=== PATIENT | female | born 1985 | race Caucasian/White ===

== ENCOUNTER 2018-12-26 13:03 | Emergency (ER) | payer MEDICAID ==
[2018-12-26] MEDS: LIDOCAINE 2% VISC 15 ML CUP PO (15:29)
== END 2018-12-26 16:59 | disposition home or self-care (01) ==
LOC: FTE 13:03
DX: O99.89 Other specified diseases and conditions complicating pregnancy, childbirth and the puerperium (principal); H60.312 Diffuse otitis externa, left ear; Z3A.14 14 weeks gestation of pregnancy
CPT/HCPCS: 99283; Z7502

== ENCOUNTER 2019-01-16 02:38 | Emergency (ER) | payer MEDICAID ==
[2019-01-16] MEDS: HYDROCODONE/APAP (5/325) TAB PO (03:27)
== END 2019-01-16 04:31 | disposition home or self-care (01) ==
LOC: FTE 02:38
DX: H66.92 Otitis media, unspecified, left ear (principal)
CPT/HCPCS: 99283; Z7502

== ENCOUNTER 2019-01-31 11:56 | Emergency (ER) | payer MEDICAID | END 2019-01-31 14:14 | disposition home or self-care (01) | LOC: FTE 14:14 | DX: O99.89 Other specified diseases and conditions complicating pregnancy, childbirth and the puerperium (principal); H92.01 Otalgia, right ear; Z3A.00 Weeks of gestation of pregnancy not specified | CPT/HCPCS: 99283; Z7502 ==

== ENCOUNTER 2019-04-24 13:55 | Emergency (ER) | payer MEDICAID ==
[2019-04-24 14:25] LABS: ADD MAN DIFF? NO
[2019-04-24] MEDS: LORAZEPAM 0.5 MG TAB PO (14:27)
[2019-04-24] MEDS: SOD CHLORIDE 0.9% 1,000 ML IV (14:28)
[2019-04-24] MEDS: LABETALOL 100 MG TAB PO (14:28)
[2019-04-24 14:30] LABS: WHITE BLOOD COUNT 10.5 10^3/ul (4.8-10.8)
[2019-04-24 14:30] LABS: BASOPHIL # 0.1 10^3/ul (0.0-0.1); BASOPHILS % 0.9 % (0.0-2.0); EOSINOPHILS # 0.2 10^3/ul (0.0-0.5); EOSINOPHILS % 1.4 % (0.0-7.0); HEMOGLOBIN 12.6 g/dl (12.0-16.0); LYMPHOCYTES # 1.9 10^3/ul (0.8-2.9); LYMPHOCYTES % 17.8 % (15.0-51.0); MEAN CORPUSCULAR HEMOGLOBIN 30.9 pg (29.0-33.0); MEAN CORPUSCULAR VOLUME 88.2 fl (82.0-101.0); MEAN PLATELET VOLUME 9.6 fl (7.4-10.4); MONOCYTE # 0.9 10^3/ul (0.3-0.9); MONOCYTES % 8.2 % (0.0-11.0); NEUTROPHIL # 7.1 10^3/ul (1.6-7.5); NEUTROPHILS % 67.5 % (39.0-77.0); PLATELET COUNT 244 10^3/UL (140-415); RED BLOOD COUNT 4.08 10^6/ul (4.20-5.40)
[2019-04-24 14:37] LABS: ADD UMIC NO; UR ASCORBIC ACID NEGATIVE (NEGATIVE); UR BILIRUBIN (Dip) NEGATIVE (NEGATIVE); UR BLOOD (Dip) NEGATIVE (NEGATIVE); UR CLARITY CLEAR (CLEAR); UR COLOR STRAW (YELLOW); UR GLUCOSE (Dip) NEGATIVE (NEGATIVE); UR KETONES (Dip) TRACE mg/dL (NEGATIVE); UR LEUKOCYTE ESTERASE (Dip) NEGATIVE Leu/ul (NEGATIVE); UR NITRITE (Dip) NEGATIVE (NEGATIVE); UR SPECIFIC GRAVITY (Dip) 1.004 (1.003-1.030); UR TOTAL PROTEIN (Dip) NEGATIVE (NEGATIVE); UR UROBILINOGEN (Dip) NEGATIVE (NEGATIVE)
[2019-04-24 14:53] LABS: ALANINE AMINOTRANSFERASE 17 IU/L (13-69); ALBUMIN/GLOBULIN RATIO 1.17; ALKALINE PHOSPHATASE 80 IU/L (42-121); ANION GAP 11 (5-13); ASPARTATE AMINO TRANSFERASE 19 IU/L (15-46); BILIRUBIN,INDIRECT 0.7 mg/dl (0-1.1); BILIRUBIN,TOTAL 0.7 mg/dl (0.2-1.3); BLOOD UREA NITROGEN 6 mg/dl (7-20); CALCIUM 9.6 mg/dl (8.4-10.2); CARBON DIOXIDE 22 mmol/L (21-31); CHLORIDE 105 mmol/L (97-110); CREATININE 0.48 mg/dl (0.44-1.00); Estimated GFR > 60 mL/min (>60); GLUCOSE 100 mg/dl (70-220); LIPASE 167 U/L (23-300); POTASSIUM 3.7 mmol/L (3.5-5.1); SODIUM 138 mmol/L (135-144); TOTAL PROTEIN 7.4 g/dl (6.1-8.1)
[2019-04-24 15:04] LABS: TROPONIN-I 0.039 ng/ml (0.000-0.120)
[2019-04-24] MEDS: DILTIAZEM 25 MG INJ IV (15:57)
== END 2019-04-24 17:56 | disposition home or self-care (01) ==
LOC: E/R 13:55
DX: O99.413 Diseases of the circulatory system complicating pregnancy, third trimester (principal); I47.1 Supraventricular tachycardia; Z3A.31 31 weeks gestation of pregnancy
CPT/HCPCS: 36415; 80053; 81003; 83690; 84484; 85025; 93005; 96374; 99284-25

== ENCOUNTER 2019-04-24 17:56 | Inpatient (IN) | payer MEDICAID ==
[2019-04-24 22:21] LABS: FREE THYROXINE INDEX (Calc) 2.58 ug/ml (0.65-3.89); T4 (THYROXINE) 13.6 ug/dl (5.5-11.0)
[2019-04-24] MEDS ORDERED: NACL 0.9% 3 ML SYG IV (23:30)
[2019-04-25 07:17] LABS: ADD MAN DIFF? NO
[2019-04-25 07:19] LABS: WHITE BLOOD COUNT 11.6 10^3/ul (4.8-10.8)
[2019-04-25 07:19] LABS: BASOPHIL # 0.1 10^3/ul (0.0-0.1); BASOPHILS % 0.8 % (0.0-2.0); EOSINOPHILS # 0.2 10^3/ul (0.0-0.5); EOSINOPHILS % 1.5 % (0.0-7.0); HEMATOCRIT 30.6 % (37.0-47.0); HEMOGLOBIN 10.6 g/dl (12.0-16.0); LYMPHOCYTES # 2.1 10^3/ul (0.8-2.9); LYMPHOCYTES % 17.7 % (15.0-51.0); MEAN CORPUSCULAR HEMOGLOBIN 30.8 pg (29.0-33.0); MEAN CORPUSCULAR HGB CONC 34.6 g/dl (32.0-37.0); MEAN PLATELET VOLUME 9.8 fl (7.4-10.4); MONOCYTE # 0.9 10^3/ul (0.3-0.9); MONOCYTES % 7.5 % (0.0-11.0); NEUTROPHILS % 69.3 % (39.0-77.0); PLATELET COUNT 219 10^3/UL (140-415); RED BLOOD COUNT 3.44 10^6/ul (4.20-5.40); RED CELL DISTRIBUTION WIDTH 13.2 % (11.5-14.5)
[2019-04-25 07:45] LABS: ALANINE AMINOTRANSFERASE 16 IU/L (13-69); ALBUMIN 3.3 g/dl (3.3-4.9); ALBUMIN/GLOBULIN RATIO 1.03; ALKALINE PHOSPHATASE 68 IU/L (42-121); ANION GAP 8 (5-13); ASPARTATE AMINO TRANSFERASE 22 IU/L (15-46); BLOOD UREA NITROGEN 4 mg/dl (7-20); CALCIUM 8.4 mg/dl (8.4-10.2); CARBON DIOXIDE 21 mmol/L (21-31); CHLORIDE 109 mmol/L (97-110); CREATININE 0.35 mg/dl (0.44-1.00); Estimated GFR > 60 mL/min (>60); GLUCOSE 88 mg/dl (70-220); MAGNESIUM 1.7 mg/dl (1.7-2.5); POTASSIUM 3.7 mmol/L (3.5-5.1); SODIUM 138 mmol/L (135-144); TOTAL PROTEIN 6.5 g/dl (6.1-8.1)
[2019-04-25] MEDS ORDERED: ACETAMINOPHEN 325 MG TAB PO (09:30)
[2019-04-25] MEDS: SOD CHLORIDE 0.9% 250 ML IV (10:26)
[2019-04-25] MEDS: PRENATAL VITAMIN PO (10:26)
[2019-04-25 11:20] LABS: CREATINE KINASE 56 IU/L (23-200)
[2019-04-25 11:28] LABS: CK INDEX 4.1; CK-MB 2.28 ng/ml (0.0-2.4)
[2019-04-25 11:32] LABS: TROPONIN-I 0.194 ng/ml (0.000-0.120)
[2019-04-25 13:33] LABS: ADD UMIC NO; UR ASCORBIC ACID NEGATIVE (NEGATIVE); UR BILIRUBIN (Dip) NEGATIVE (NEGATIVE); UR BLOOD (Dip) NEGATIVE (NEGATIVE); UR CLARITY CLEAR (CLEAR); UR COLOR YELLOW (YELLOW); UR GLUCOSE (Dip) NEGATIVE (NEGATIVE); UR KETONES (Dip) NEGATIVE (NEGATIVE); UR LEUKOCYTE ESTERASE (Dip) NEGATIVE Leu/ul (NEGATIVE); UR NITRITE (Dip) NEGATIVE (NEGATIVE); UR SPECIFIC GRAVITY (Dip) 1.005 (1.003-1.030); UR TOTAL PROTEIN (Dip) NEGATIVE (NEGATIVE); UR UROBILINOGEN (Dip) NEGATIVE (NEGATIVE)
[2019-04-25] MEDS: FERROUS GLUCONATE (EC) 325 MG TAB PO (14:56)
[2019-04-25 16:24] LABS: CREATINE KINASE 55 IU/L (23-200)
[2019-04-25 16:33] LABS: CK INDEX 3.1; CK-MB 1.71 ng/ml (0.0-2.4)
[2019-04-25 16:37] LABS: TROPONIN-I 0.101 ng/ml (0.000-0.120)
[2019-04-25 16:51] LABS: INR 1.04; PROTIME 13.7 Sec (11.9-14.9); PT RATIO 1.1
[2019-04-25] MEDS ORDERED: LACTATED RINGER'S 1,000 ML IV (22:38)
[2019-04-26 06:50] LABS: ADD MAN DIFF? NO
[2019-04-26 06:56] LABS: BASOPHIL # 0.1 10^3/ul (0.0-0.1); BASOPHILS % 0.8 % (0.0-2.0); EOSINOPHILS # 0.2 10^3/ul (0.0-0.5); EOSINOPHILS % 2.3 % (0.0-7.0); LYMPHOCYTES # 2.1 10^3/ul (0.8-2.9); LYMPHOCYTES % 21.9 % (15.0-51.0); MEAN CORPUSCULAR HEMOGLOBIN 30.1 pg (29.0-33.0); MEAN CORPUSCULAR HGB CONC 34.4 g/dl (32.0-37.0); MEAN CORPUSCULAR VOLUME 87.4 fl (82.0-101.0); MEAN PLATELET VOLUME 9.7 fl (7.4-10.4); MONOCYTE # 0.8 10^3/ul (0.3-0.9); MONOCYTES % 8.4 % (0.0-11.0); NEUTROPHILS % 61.9 % (39.0-77.0); PLATELET COUNT 226 10^3/UL (140-415); RED BLOOD COUNT 3.66 10^6/ul (4.20-5.40); RED CELL DISTRIBUTION WIDTH 13.1 % (11.5-14.5)
[2019-04-26 06:56] LABS: WHITE BLOOD COUNT 9.6 10^3/ul (4.8-10.8)
[2019-04-26 07:19] LABS: ALANINE AMINOTRANSFERASE 13 IU/L (13-69); ALBUMIN 3.3 g/dl (3.3-4.9); ALKALINE PHOSPHATASE 63 IU/L (42-121); ANION GAP 10 (5-13); ASPARTATE AMINO TRANSFERASE 18 IU/L (15-46); BILIRUBIN,INDIRECT 0.8 mg/dl (0-1.1); BILIRUBIN,TOTAL 0.8 mg/dl (0.2-1.3); BLOOD UREA NITROGEN 4 mg/dl (7-20); CALCIUM 8.5 mg/dl (8.4-10.2); CARBON DIOXIDE 20 mmol/L (21-31); CHLORIDE 109 mmol/L (97-110); CREATININE 0.39 mg/dl (0.44-1.00); Estimated GFR > 60 mL/min (>60); GLUCOSE 93 mg/dl (70-220); POTASSIUM 3.7 mmol/L (3.5-5.1); SODIUM 139 mmol/L (135-144); TOTAL PROTEIN 6.3 g/dl (6.1-8.1)
[2019-04-26 07:22] LABS: MAGNESIUM 1.7 mg/dl (1.7-2.5)
[2019-04-26 07:30] LABS: TROPONIN-I 0.121 ng/ml (0.000-0.120)
[2019-04-26] MEDS: PRENATAL VITAMIN PO (09:11)
[2019-04-26] MEDS: FERROUS GLUCONATE (EC) 325 MG TAB PO (09:11)
[2019-04-26 23:34] LABS: HEMOGLOBIN A1C 4.7 % (0-5.9)
[2019-04-27] MEDS ORDERED: GLUCOSE GEL 15 GRAM TUBE BUCCAL (00:30)
[2019-04-27] MEDS ORDERED: GLUCAGON 1 MG INJ IM (00:30)
[2019-04-27] MEDS ORDERED: DEXTROSE 50% 50 ML SYRINGE IV ×2 (00:30)
[2019-04-27] MEDS ORDERED: GLUCOSE GEL 15 GRAM TUBE PO ×2 (00:30)
[2019-04-27] MEDS: BETAMET NA PHOS/AC(6 MG/ML) 2 ML INJ SYG IM (01:55)
[2019-04-27] MEDS: ACCU-CHEK XX ×4 (06:00→20:08)
[2019-04-27] MEDS: INSULIN ASPART [NOVOLOG] 3 ML PEN SC ×3 (08:17→20:00)
[2019-04-27] MEDS: PRENATAL VITAMIN PO (08:35)
[2019-04-27] MEDS: ASPIRIN (EC) 81 MG TAB PO ×3 (08:36→18:25)
[2019-04-27] MEDS: FERROUS GLUCONATE (EC) 325 MG TAB PO (08:36)
[2019-04-27 09:08] LABS: TROPONIN-I 0.056 ng/ml (0.000-0.120)
[2019-04-28] MEDS: BETAMET NA PHOS/AC(6 MG/ML) 2 ML INJ SYG IM (00:13)
[2019-04-28] MEDS: ACCU-CHEK XX ×4 (05:43→19:55)
[2019-04-28 07:06] LABS: TROPONIN-I 0.029 ng/ml (0.000-0.120)
[2019-04-28] MEDS: ASPIRIN (EC) 81 MG TAB PO (08:16)
[2019-04-28] MEDS: PRENATAL VITAMIN PO (08:16)
[2019-04-28] MEDS: FERROUS GLUCONATE (EC) 325 MG TAB PO (08:17)
[2019-04-28] MEDS: INSULIN ASPART [NOVOLOG] 3 ML PEN SC ×3 (10:20→21:16)
[2019-04-29] MEDS: ACCU-CHEK XX ×4 (06:00→19:55)
[2019-04-29 07:22] LABS: TROPONIN-I 0.018 ng/ml (0.000-0.120)
[2019-04-29] MEDS: FERROUS GLUCONATE (EC) 325 MG TAB PO (08:10)
[2019-04-29] MEDS: ASPIRIN (EC) 81 MG TAB PO (08:10)
[2019-04-29] MEDS: PRENATAL VITAMIN PO (08:10)
[2019-04-29] MEDS: INSULIN ASPART [NOVOLOG] 3 ML PEN SC ×3 (09:55→19:55)
[2019-04-29] MEDS: DOCUSATE SODIUM 100 MG CAP PO (10:16)
[2019-04-30] MEDS: ACCU-CHEK XX ×2 (05:57→10:15)
[2019-04-30] MEDS: ASPIRIN (EC) 81 MG TAB PO (08:11)
[2019-04-30] MEDS: PRENATAL VITAMIN PO (08:11)
[2019-04-30] MEDS: FERROUS GLUCONATE (EC) 325 MG TAB PO (08:11)
[2019-04-30] MEDS: INSULIN ASPART [NOVOLOG] 3 ML PEN SC (09:55)
== END 2019-04-30 12:00 | disposition home or self-care (01) | DRG 831 ==
LOC: OBT 17:56 → L-D 17:59 → TEL 23:55 → L-D 18:14
PROVIDERS: Internal Medicine
DX: O99.413 Diseases of the circulatory system complicating pregnancy, third trimester (principal); I21.4 Non-ST elevation (NSTEMI) myocardial infarction; Z3A.32 32 weeks gestation of pregnancy; O24.419 Gestational diabetes mellitus in pregnancy, unspecified control; O99.013 Anemia complicating pregnancy, third trimester; O99.283 Endocrine, nutritional and metabolic diseases complicating pregnancy, third trimester; E03.8 Other specified hypothyroidism; O34.219 Maternal care for unspecified type scar from previous cesarean delivery
CPT/HCPCS: 76805; 76818; 80053; 81003; 82550; 82553; 82962; 83036; 83735; 84100; 84436; 84439; 84443; 84479; 84480; 84484; 85025; 85610; 93005; 93306; 93970; G0378

== ENCOUNTER 2019-06-19 05:40 | Inpatient (IN) | payer MEDICAID ==
[2019-06-19] MEDS ORDERED: CARBOPROST 250 MCG INJ IM ×2 (06:00→12:30)
[2019-06-19] MEDS ORDERED: METHYLERGONOVINE 0.2 MG INJ IM ×2 (06:00→12:30)
[2019-06-19] MEDS ORDERED: CEFAZOLIN 2 GM/50 ML (PMX) 50 ML IVPB (06:00)
[2019-06-19] MEDS ORDERED: MISOPROSTOL 200 MCG TAB PR ×2 (06:00→12:30)
[2019-06-19] MEDS ORDERED: OXYTOCIN 30 UNITS/LR 500 ML IV ×2 (06:00→12:30)
[2019-06-19 06:38] LABS: ADD MAN DIFF? NO
[2019-06-19 06:40] LABS: WHITE BLOOD COUNT 7.2 10^3/ul (4.8-10.8)
[2019-06-19 06:40] LABS: BASOPHILS % 0.6 % (0.0-2.0); EOSINOPHILS # 0.1 10^3/ul (0.0-0.5); EOSINOPHILS % 1.3 % (0.0-7.0); HEMOGLOBIN 10.7 g/dl (12.0-16.0); LYMPHOCYTES # 1.9 10^3/ul (0.8-2.9); LYMPHOCYTES % 26.2 % (15.0-51.0); MEAN CORPUSCULAR HEMOGLOBIN 31.4 pg (29.0-33.0); MEAN CORPUSCULAR HGB CONC 34.5 g/dl (32.0-37.0); MEAN CORPUSCULAR VOLUME 90.9 fl (82.0-101.0); MEAN PLATELET VOLUME 9.9 fl (7.4-10.4); MONOCYTE # 0.5 10^3/ul (0.3-0.9); MONOCYTES % 7.4 % (0.0-11.0); NEUTROPHIL # 4.5 10^3/ul (1.6-7.5); NEUTROPHILS % 62.8 % (39.0-77.0); PLATELET COUNT 205 10^3/UL (140-415); RED BLOOD COUNT 3.41 10^6/ul (4.20-5.40)
[2019-06-19] MEDS: LACTATED RINGER'S 1,000 ML IV (06:51)
[2019-06-19 07:02] LABS: INR 0.99; PARTIAL THROMBOPLASTIN TIME 28.6 Sec (23.0-35.0); PROTIME 13.2 Sec (11.9-14.9)
[2019-06-19] MEDS ORDERED: FENTAnyl 50 MCG/ML VIAL (07:26)
[2019-06-19] MEDS ORDERED: PHENYLephrine (100 MCG/ML) 10ML SYG (07:26)
[2019-06-19] MEDS ORDERED: ONDANSETRON 4 MG INJ (07:27)
[2019-06-19] MEDS ORDERED: morphine SULFATE/PF (10 MG/10 ML) INJ (07:27)
[2019-06-19] MEDS ORDERED: OXYTOCIN 10 UNIT INJ (07:27)
[2019-06-19 07:28] LABS: HEPATITIS B SURFACE ANTIGEN NEGATIVE (NEGATIVE)
[2019-06-19] MEDS: OXYTOCIN 30 UNITS/LR 500 ML IV ×2 (12:12→12:20)
[2019-06-19] MEDS ORDERED: ONDANSETRON 4 MG INJ IV ×2 (12:30→17:00)
[2019-06-19] MEDS ORDERED: OXYCODONE/ACETAMINOPHEN (5/325) TAB PO ×2 (12:30)
[2019-06-19] MEDS ORDERED: LANOLIN HPA 1 PKT TOP (12:30)
[2019-06-19] MEDS ORDERED: ZOLPIDEM 5 MG TAB PO (12:30)
[2019-06-19] MEDS ORDERED: DIPHENHYDRAMINE 50 MG INJ IV ×2 (12:30→17:00)
[2019-06-19] MEDS: CLINDAMYCIN 900 MG (PMX) 50 ML IVPB ×2 (14:02→22:45)
[2019-06-19] MEDS: CEFAZOLIN 2 GM/50 ML (PMX) 50 ML IVPB (16:52)
[2019-06-19] MEDS ORDERED: NALOXONE (0.4 MG/ML) INJ IV (17:00)
[2019-06-19] MEDS ORDERED: NALBUPHINE HCL (10 MG/1 ML) INJ IV (17:00)
[2019-06-19] MEDS ORDERED: morphine 2 MG INJ IV ×2 (17:00)
[2019-06-19] MEDS ORDERED: TRIMETHOBENZAMIDE 100 MG/ML VIAL IM (17:00)
[2019-06-19] MEDS: IBUPROFEN 600 MG TAB PO (18:00)
[2019-06-19 18:25] LABS: RAPID PLASMA REAGIN NONREACTIVE (NR)
[2019-06-19] MEDS: SENNA/DOCUSATE NA (8.6MG/50MG) TAB PO (21:00)
[2019-06-20] MEDS: CEFAZOLIN 2 GM/50 ML (PMX) 50 ML IVPB ×2 (01:14→07:59)
[2019-06-20] MEDS: IBUPROFEN 600 MG TAB PO ×5 (06:11→23:34)
[2019-06-20] MEDS: CLINDAMYCIN 900 MG (PMX) 50 ML IVPB (06:11)
[2019-06-20] MEDS: LACTATED RINGER'S 1,000 ML IV (06:12)
[2019-06-20 08:11] LABS: ADD MAN DIFF? NO
[2019-06-20 08:17] LABS: WHITE BLOOD COUNT 11.1 10^3/ul (4.8-10.8)
[2019-06-20 08:17] LABS: BASOPHILS % 0.4 % (0.0-2.0); EOSINOPHILS # 0.1 10^3/ul (0.0-0.5); HEMATOCRIT 29.1 % (37.0-47.0); HEMOGLOBIN 9.9 g/dl (12.0-16.0); LYMPHOCYTES # 1.2 10^3/ul (0.8-2.9); LYMPHOCYTES % 11.1 % (15.0-51.0); MEAN CORPUSCULAR HEMOGLOBIN 30.9 pg (29.0-33.0); MEAN CORPUSCULAR VOLUME 90.9 fl (82.0-101.0); MEAN PLATELET VOLUME 10.2 fl (7.4-10.4); MONOCYTE # 0.9 10^3/ul (0.3-0.9); MONOCYTES % 7.9 % (0.0-11.0); NEUTROPHIL # 8.7 10^3/ul (1.6-7.5); NEUTROPHILS % 78.2 % (39.0-77.0); PLATELET COUNT 190 10^3/UL (140-415); RED CELL DISTRIBUTION WIDTH 13.2 % (11.5-14.5)
[2019-06-20] MEDS: SENNA/DOCUSATE NA (8.6MG/50MG) TAB PO ×2 (11:59→20:58)
[2019-06-21] MEDS: IBUPROFEN 600 MG TAB PO ×4 (05:27→23:26)
[2019-06-21] MEDS: SENNA/DOCUSATE NA (8.6MG/50MG) TAB PO ×2 (08:49→21:51)
[2019-06-22] MEDS: IBUPROFEN 600 MG TAB PO ×2 (05:14→11:36)
[2019-06-22] MEDS: DIPHTH/TET/ACEL PERTUSS (ADULT) 0.5 ML VIAL IM* (10:25)
[2019-06-22] MEDS: SENNA/DOCUSATE NA (8.6MG/50MG) TAB PO (10:25)
== END 2019-06-22 19:03 | disposition home or self-care (01) | DRG 785 ==
LOC: L-D 05:40 → PP1 12:14
PROVIDERS: Obstetrics & Gynecology
PROC: 10D00Z1 Extraction of Products of Conception, Low, Open Approach (ICD-10-PCS; principal; 2019-06-19 07:30)
PROC: 0UB70ZZ Excision of Bilateral Fallopian Tubes, Open Approach (ICD-10-PCS; 2019-06-19 07:30)
PROC: 4A1HXCZ Monitoring of Products of Conception, Cardiac Rate, External Approach (ICD-10-PCS; 2019-06-19 07:30)
DX: O34.211 Maternal care for low transverse scar from previous cesarean delivery (principal); O24.420 Gestational diabetes mellitus in childbirth, diet controlled; O99.214 Obesity complicating childbirth; O99.02 Anemia complicating childbirth; Z3A.39 39 weeks gestation of pregnancy; Z87.891 Personal history of nicotine dependence; Z37.0 Single live birth; Z23 Encounter for immunization; Z30.2 Encounter for sterilization
CPT/HCPCS: 82962; 85025; 85610; 85730; 86592; 86850; 86900; 86901; 87340; 88302; 90715; 99464